=== PATIENT | female | born 1980 | race Caucasian/White ===

== ENCOUNTER → 2021-01-09 | Outpatient (CLI) | payer OTHER ==
--- NOTE | 2021-01-09 10:53 | RAD ---
EXAM: Pelvic ultrasound HISTORY: Heavy irregular periods. COMPARISON: None. FINDINGS: Sonographic evaluation of the pelvis was performed transabdominally and transvaginally. The uterus is anteverted and measures 10.2 x 5.5 x 3.6 cm. The endometrial stripe measures 13 mm. No masses are identified. There is no significant free fluid. The right ovary measures 2.2 x 2.2 x 1.7 cm. The left ovary measures 3.3 x 2.4 x 1.9 cm. There are sm all peripheral follicles in the right ovary, but not the left. There is normal Doppler flow bilateral ly. There are no suspicious lesions. IMPRESSION: 1. Normal endometrial thickness in a premenopausal patient. No uterine masses. 2. Findings consistent with but not typical of polycystic ovarian syndrome. Correlate with other data . Electronically signed by: Ernestina Salinas MD (01/09/2021 10:51 AM) [id number]
[2021-01-09 12:23] LABS: BASO % 1 % (0-3); EOS % 1 % (0-3); HEMATOCRIT 42.9 % (36.0-47.0); HEMOGLOBIN 14.4 g/dL (12.0-15.5); LYMPH # 1.5 x10^3/uL (1.0-4.8); LYMPH % 27 % (24-48); MEAN CORPUSCULAR HEMOGLOBIN 33 pg (25-35); MEAN CORPUSCULAR HGB CONC 33 g/dL (31-37); MEAN CORPUSCULAR VOLUME 99 fL (79-100); MONO # 0.3 x10^3/uL (0.0-1.1); MONO % 5 % (0-9); NEUT # 3.7 x10^3uL (1.8-7.7); NEUT % 66 % (31-73); PLATELET COUNT 203 x10^3/uL (140-400); RED BLOOD COUNT 4.35 x10^6/uL (3.50-5.40); RED CELL DISTRIBUTION WIDTH 13.7 % (11.5-14.5); WHITE BLOOD COUNT 5.6 x10^3/uL (4.0-11.0)
[2021-01-09 12:33] LABS: ALBUMIN 3.5 g/dL (3.4-5.0); ALBUMIN/GLOBULIN RATIO 0.8 (1.0-1.7); CALCIUM 8.7 mg/dL (8.5-10.1); CREATININE 0.9 mg/dL (0.6-1.0); GFR 68.7; POTASSIUM 4.5 mmol/L (3.5-5.1); TOTAL BILIRUBIN 1.1 mg/dL (0.2-1.0); TOTAL PROTEIN 7.7 g/dL (6.4-8.2)
[2021-01-10 05:07] LABS: DHEA SO4 233.5 ug/dL (57.3-279.2); FSH 2.5 mIU/mL (.); LUTEINIZING HORMONE 6.4 mIU/mL (.); PROLACTIN 5.1 ng/mL (4.8-23.3)
[2021-01-10 07:09] LABS: HEMOGLOBIN A1C 5.2 % (4.8-5.6)
[2021-01-10 13:13] LABS: INSULIN LEVEL 0.7 uIU/mL (2.6-24.9)
[2021-01-11 18:16] LABS: THYROID STIM HORMONE (TSH) 1.906 uIU/mL (0.358-3.740)
== END ==
LOC: US 09:54
PROVIDERS: ATTEND Obstetrics & Gynecology
DX: N83.8 Other noninflammatory disorders of ovary, fallopian tube and broad ligament (principal); N85.4 Malposition of uterus
CPT/HCPCS: 36415; 76830; 76856; 80053; 80061; 82627; 82652; 83001; 83002; 83036; 83525; 84146; 84402; 84403; 84443; 85025